=== PATIENT | female | born 1960 | race Caucasian/White ===

== ENCOUNTER → 2017-05-10 | Outpatient (CLI) | payer BC ==
[~2017-05-10] MED LIST: IBUP-1427 PO; ZOLP10TA6 PO
== END | disposition home or self-care (01) ==
LOC: C.CPL 12:36
PROVIDERS: ATTEND Family Medicine
DX: R07.9 Chest pain, unspecified (principal); R94.31 Abnormal electrocardiogram [ECG] [EKG]

== ENCOUNTER → 2018-02-13 | Outpatient (CLI) | payer OTHER ==
--- NOTE | 2018-02-14 14:30 | MAMMOGRAPHY REPORT ---
BILATERAL DIGITAL SCREENING MAMMOGRAM TOMOSYNTHESIS WITH CAD: 02/13/2018 CLINICAL HISTORY: Routine screening. The patient reported to the technologist a right breast palpable lump. TECHNIQUE: Breast tomosynthesis in addition to standard 2D mammography was performed. Current study w as also evaluated with a Computer Aided Detection (CAD) system. COMPARISON: Comparison is made to exam dated: 04/19/2016 mammogram - [facility]. BREAST COMPOSITION: There are scattered areas of fibroglandular density in both breasts. FINDINGS: No suspicious masses, calcifications, or areas of architectural distortion are noted in either breast . There has been no significant interval change compared to prior exams. There are stable postsurgi sharee changes from bilateral reduction mammoplasty. A triangle marker santiago the site of the palpable l ump pointed out by the patient in the right 12:00 anterior breast. At the site of the triangle marke r there is a superficially located, rim calcified 10 mm fat density mass; this is stable compared to the prior exam and is compatible with a rim calcified benign oil cyst related to fat necrosis. Scatt ered bilateral benign-appearing calcifications are not significantly changed. IMPRESSION: ACR BI-RADS CATEGORY 2: BENIGN There is no mammographic evidence of malignancy in either breast. The palpable lump in the right 12: 00 breast corresponds with a benign rim calcified oil cyst; recommend clinical follow-up. A 1 year s creening mammogram is recommended.(02/14/2019) The patient will receive written notification of the results. Some breast cancers are not detected with mammography. A negative mammographic report should not jacque y biopsy if a clinically suggestive mass is present. Annabelle Robin M.D. ah/:02/13/2018 15:54:24 Vacuum System Tester: RT Gregorio(Janusz)(M)(BD), [facility] letter sent: Normal 1/2 BI-RADS Code: ACR BI-RADS Category 2: Benign
== END | disposition home or self-care (01) ==
LOC: C.MAMM 14:53
PROVIDERS: ATTEND Family Medicine
DX: Z12.31 Encounter for screening mammogram for malignant neoplasm of breast (principal); N63.10 Unspecified lump in the right breast, unspecified quadrant